=== PATIENT | female | born 1995 | race Caucasian/White ===

== ENCOUNTER 2021-01-09 22:03 | Emergency (ER) | payer MEDICAID ==
[2021-01-09] MEDS ORDERED: Albuterol/Ipratropium 3.0-0.5 MG/3 ML Neb Soln NEB ONE (22:27)
--- NOTE | 2021-01-09 22:33 | EDM.PDOC ---
ED HPI GENERAL MEDICAL PROBLEM - General Chief Complaint: Asthma Stated Complaint: SOB Time Seen by Provider: 01/09/21 22:21 Source of Information: Reports: Patient History Limitations: Reports: No Limitations - History of Present Illness INITIAL COMMENTS - FREE TEXT/NARRATIVE: 25 yo female presents with wheezing. she has not had issues with her asthma for many years. she does have seasonal allergies and these have been present over the last few weeks. She became wheezy increasing throughout the day. Pt does not have an albuterol inhaler. 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: Psychiatric History: Reports: Anxiety - Infectious Disease History Infectious Disease History: Reports: Chicken Pox Social & Family History - Family History Family Medical History: No Pertinent Family History - Tobacco Use Tobacco Use Status *Q: Current Every Day Tobacco User Years of Tobacco use: 8 Packs/Tins Daily: 0.1 - Caffeine Use Caffeine Use: Reports: Coffee - Recreational Drug Use Recreational Drug Use: No ED ROS GENERAL - Review of Systems Review Of Systems: See Below Constitutional: Denies: Fever Respiratory: Reports: Shortness of Breath, Wheezing, Cough Cardiovascular: Denies: Chest Pain GI/Abdominal: Denies: Abdominal Pain ED EXAM, GENERAL - Physical Exam Exam: See Below Exam Limited By: No Limitations General Appearance: Alert, WD/WN, No Apparent Distress Neck: Normal Inspection, Supple, Non-Tender, Full Range of Motion. No: Lymphadenopathy (R), Lymphadenopathy (L) Respiratory/Chest: Respiratory Distress, Decreased Breath Sounds, Wheezing Cardiovascular: No Murmur, Tachycardia Course - Vital Signs Last Recorded V/S: Last Vital Signs Temp 36.5 C 01/09/21 22:19 Pulse 107 H 01/09/21 22:56 Resp 22 H 01/09/21 22:14 BP 101/68 01/09/21 22:56 Pulse Ox 97 01/09/21 22:56 - Orders/Labs/Meds Orders: Active Orders 24 hr Category Date Time Status RT Aerosol Therapy [RC] ASDIRECTED Care 01/09/21 22:27 Active Meds: Medications Discontinued Medications Generic Name Dose Route Start Last Admin Trade Name Otf PRN Reason Stop Dose Admin Albuterol/Ipratropium 3 ml 01/09/21 22:27 01/09/21 22:31 Albuterol/Ipratropium 3.0-0.5 Mg/3 Ml Neb Soln NEB 01/09/21 22:28 3 ml ONETIME ONE Administration - Re-Assessments/Exams Free Text/Narrative Re-Assessment/Exam: 01/09/21 23:10 responded very well to Duo neb, respiratory distress resolved. will discharge home on a short burst of steroids and albuterol MDI Departure - Departure Time of Disposition: 23:12 Disposition: Home, Self-Care 01 Condition: Good Clinical Impression: Asthma exacerbation Qualifiers: Asthma severity: moderate Asthma persistence: persistent Qualified Code(s): J45.41 - Moderate persistent asthma with (acute) exacerbation - Discharge Information *PRESCRIPTION DRUG MONITORING PROGRAM REVIEWED*: Not Applicable *COPY OF PRESCRIPTION DRUG MONITORING REPORT IN PATIENT LIZ: Not Applicable Instructions: How to Use a Dry Powder Inhaler, [id number] Referrals: Maxine Santos MD [Primary Care Provider] - Forms: ED Department Discharge Additional Instructions: utilize albuterol MDI 1-2 puffs as needed every 4 hours for SOB and wheezing short prednisone burst 10 mg daily for 5 days OTC allergy medication daily Sepsis Event Note (ED) - Evaluation Sepsis Screening Result: No Definite Risk - Focused Exam Vital Signs: Vital Signs Temp Pulse Resp BP Pulse Ox 01/09/21 22:56 107 H 101/68 97 01/09/21 22:19 36.5 C 102 H 117/71 91 L 01/09/21 22:14 36.5 C 102 H 22 H 117/71 91 L - My Orders Last 24 Hours: My Active Orders 01/09/21 22:27 RT Aerosol Therapy [RC] ASDIRECTED - Assessment/Plan Last 24 Hours: My Active Orders 01/09/21 22:27 RT Aerosol Therapy [RC] ASDIRECTED
== END 2021-01-09 23:26 | disposition home or self-care (01) ==
LOC: JP.ED 22:03
DX: J45.41 Moderate persistent asthma with (acute) exacerbation (principal); K21.9 Gastro-esophageal reflux disease without esophagitis; Z79.899 Other long term (current) drug therapy; Z72.0 Tobacco use
CPT/HCPCS: 99284-25; J7620-GY